=== PATIENT | male | born 1945 | race Caucasian/White ===

== ENCOUNTER 2016-12-13 05:35 | Day surgery (SDC) | payer SELFPAY ==
[~2016-12-13] VITALS: Ht 180.3 cm; Wt 86.2 kg
[~2016-12-13 05:35] MED LIST: AMLODIPINE5 MG PO; HYDROCODONE/IBU1 TA3; LIPITOR40 M1 PO; LISINOP/HCTZ1 TA1 PO; METFORMIN500 M2 PO
[2016-12-13 12:13] VITALS: BP 164/73
== END 2016-12-13 12:38 | disposition home or self-care (01) | DRG 554 ==
LOC: ORM 05:35 → MS2 05:35 → EDSTATUS 12:15 → EDUNIT# 12:15 → ORM 12:38 → MS2 12:38
PROVIDERS: ATTEND Orthopaedic Surgery
DX: M16.11 Unilateral primary osteoarthritis, right hip (principal); L97.319 Non-pressure chronic ulcer of right ankle with unspecified severity; Z53.09 Procedure and treatment not carried out because of other contraindication
CPT/HCPCS: J2270; J2710

== ENCOUNTER 2017-01-17 07:00 | Inpatient (IN) | payer SELFPAY ==
[~2017-01-17] VITALS: Ht 177.8 cm; Wt 86.2 kg
[2017-02-03] MEDS ORDERED: JANUMET XR1 TA1 PO (11:17)
[2017-03-24] MEDS ORDERED: METFORMIN500 MG PO (13:25)
[2017-03-28] VITALS (8 sets, daily range): BP systolic 128–160; BP diastolic 63–87
[2017-03-29] VITALS: BP 154/83
[2017-03-29 03:50] VITALS: BP 132/74
[2017-03-29 06:47] LABS: HEMATOCRIT 36.1 % (39.0-50.0); HEMOGLOBIN 12.2 g/dl (14.0-18.0)
[2017-03-29 08:57] VITALS: BP 125/69
[2017-03-29 15:22] VITALS: BP 129/73
[2017-03-29 19:20] VITALS: BP 138/75
[2017-03-29 23:44] VITALS: BP 144/64
[2017-03-30 04:35] VITALS: BP 152/84
[2017-03-30 05:16] LABS: HEMATOCRIT 33.6 % (39.0-50.0); HEMOGLOBIN 11.4 g/dl (14.0-18.0)
[2017-03-30 05:31] LABS: ANION GAP 13 (6-22 (CALC)); BUN 9 mg/dL (8-23); BUN/CREATININE RATIO 15 (12-20 (CALC)); CALCIUM 8.4 mg/dL (8.4-10.2); CARBON DIOXIDE 30 mmol/l (22-30); CHLORIDE 95 mmol/l (95-108); CREATININE 0.6 mg/dL (0.7-1.3); GFR > 60 ML/MIN (>=60 (CALC)); GFR FOR AFR.AMER. > 60 ML/MIN (>=60 (CALC)); GLUCOSE 195 mg/dL (82-115); MAGNESIUM 1.5 mg/dL (1.6-2.3); POTASSIUM 3.5 mmol/l (3.5-5.1); SODIUM 134 mmol/l (137-146)
[2017-03-30 08:35] VITALS: BP 135/75
[2017-03-30 16:10] VITALS: BP 159/74
[2017-03-30 19:41] VITALS: BP 145/73
[2017-03-30 23:49] VITALS: BP 129/76
[2017-03-31 03:19] VITALS: BP 128/72
[2017-03-31 05:00] LABS: HEMATOCRIT 32.7 % (39.0-50.0); HEMOGLOBIN 11.2 g/dl (14.0-18.0)
[2017-03-31 05:15] LABS: ANION GAP 14 (6-22 (CALC)); BUN 11 mg/dL (8-23); BUN/CREATININE RATIO 17 (12-20 (CALC)); CALCIUM 8.3 mg/dL (8.4-10.2); CARBON DIOXIDE 29 mmol/l (22-30); CHLORIDE 95 mmol/l (95-108); CREATININE 0.6 mg/dL (0.7-1.3); GFR > 60 ML/MIN (>=60 (CALC)); GFR FOR AFR.AMER. > 60 ML/MIN (>=60 (CALC)); GLUCOSE 201 mg/dL (82-115); POTASSIUM 3.9 mmol/l (3.5-5.1); SODIUM 134 mmol/l (137-146)
[2017-03-31 07:30] VITALS: BP 148/75
[2017-03-31 07:39] VITALS: BP 148/75
[2017-03-31] MEDS ORDERED: ASPIRIN EC325 MG PO (11:31)
[2017-03-31] MEDS ORDERED: PANTOPRAZOLE SO40 M1 PO (11:31)
== END 2017-03-31 16:30 | disposition home health service (06) | DRG 470 ==
LOC: MS2 02-14 10:30
PROVIDERS: ADMIT Orthopaedic Surgery; ATTEND Internal Medicine
PROC: 0SR904Z Replacement of Right Hip Joint with Ceramic on Polyethylene Synthetic Substitute, Open Approach (ICD-10-PCS; principal; 2017-03-28)
DX: M16.11 Unilateral primary osteoarthritis, right hip (principal); M25.751 Osteophyte, right hip; E11.65 Type 2 diabetes mellitus with hyperglycemia; I10 Essential (primary) hypertension; E78.5 Hyperlipidemia, unspecified; K59.00 Constipation, unspecified; Z79.84 Long term (current) use of oral hypoglycemic drugs
CPT/HCPCS: J2270; J2710